=== PATIENT | male | born 2000 | race Caucasian/White ===

== ENCOUNTER 2019-12-05 03:49 | Emergency (ER) | payer SELFPAY ==
--- NOTE | 2019-12-05 03:52 | ECG_ITS ---
Measurements Intervals [place] Rate: 59 P: 62 NE: 127 QRS: 81 QRSD: 101 T: 41 QT: 386 QTc: [address] ELEVATION, PROBABLY EARLY REPOLARIZATION [ST ELEVATION WITH NORMALLY IN INFLECTED T WAVE] No previous ECG available for comparison Electronically Signed On 12-05-2019 13:05:13 CDT by Gera Yun M.D. [email or web address]
[2019-12-05 03:53] VITALS: BP 121/79; PULSE 67; RESP 18; TEMP 36.6; O2SAT 98; BMI 22.8
--- NOTE | 2019-12-05 03:53 | W.ED.OVERDOS ---
HPI - Overdose General: Chief Complaint: Overdose Stated Complaint: accidental overdose Time Seen by Provider: 12/05/19 03:52 Source: patient and EMS Mode of arrival: EMS Limitations: no limitations History of Present Illness: HPI Narrative: 19-year-old male who states he took an allergy pill at 1 AM and then another 1 at 3 AM. The allergy pill was an ekxz-adb-mioyhhp sertraline 10 mg. Patient states that on his way to work he started to feel some palpitations and shaky. He states he feels slightly sick to the stomach. He denies any other symptoms at this time. He is well-appearing here. complaint: accidental overdose Review of Systems Const: Denies: fever(s), chills, body aches or change in appetite Eyes: Denies: blurry vision or eye discomfort ENMT: Denies: throat pain or dental pain Card: Reports: palpitations; Denies: chest pain Resp: Denies: dyspnea GI: Denies: abdominal pain, nausea, vomiting or diarrhea : Denies: dysuria Musc: Denies: neck pain or back pain Skin/Breast: Denies: rash Neuro: Denies: headache(s) Psych: Denies: depression Farhad/Lymph: Denies: easy bruising All/Imm: Denies: urticaria PFSH ED PFSH: Social History Smoking and tobacco status: never smoked Physical Exam Const: COMMON NORMALS: no acute distress, patient oriented x3 and healthy appearing HENMT: COMMON NORMALS: normocephalic and atraumatic HEAD & SCALP: normocephalic and atraumatic Eye: COMMON NORMALS: Equal, round and reactive pupils present and EOMs intact bilaterally PUPIL: Yes Equal, round and reactive pupils present Neck/C-Spine: COMMON NORMALS: full ROM and supple Chest: COMMONS NORMALS: normal inspection of the chest and normal palpation of entire chest wall Resp: COMMON NORMALS: normal respiratory effort, No retractions, No use of accessory muscles and clear to auscultation bilaterally AUSCULTATION: clear to auscultation bilaterally Cardio: COMMON NORMALS: regular rate, regular rhythm and No murmurs present (Cardio) RATE: regular rate RHYTHM: regular rhythm GI: COMMON NORMALS: Normal to inspection, nondistended, normoactive bowel sounds present, Soft to palpation, non-tender and no masses PALPATION: Yes Soft to palpation Extremity: COMMON NORMALS: normal to inspection and full ROM Neuro: COMMON NORMALS: patient oriented x3, moves all extremities and no focal motor deficits Psych: COMMON NORMALS: mental status grossly normal, Normal thought process present and cooperative THOUGHT PROCESS: Normal thought process present Skin: COMMON NORMALS: no rashes or lesions noted and no wounds GENERAL SKIN EXAM: no rashes or lesions noted Course Vital Signs: Vital signs: Vital Signs Temperature 97.9 F 12/05/19 03:53 Pulse Rate 78 12/05/19 04:21 Respiratory Rate 18 12/05/19 04:21 Blood Pressure 140/72 12/05/19 04:21 Pulse Oximetry 98 12/05/19 04:21 MDM - Overdose MDM Narrative: Medical decision making narrative: Patient presents here with med ingestion with no overdose. Patient's been well-appearing here with a normal heart rate. Patient did not have a toxic dose and is stable for discharge. He is to follow-up with primary care doctor in 3 to 5 days return if worsening. EKG Data^: EKG 1: Attestation: I personally reviewed and interpreted this EKG as follows: EKG interpretation date: 12/05/19 EKG interpretation time: 04:13 Interpretation: sinus bradycardia hr [address] or t wave abnormalities qrs 101 qtc 384 Discharge Plan Discharge Patient Disposition: Home, Self-Care Clinical Impression: Drug overdose Qualifiers: Encounter type: initial encounter Injury intent: accidental or unintentional Qualified Code(s): T50.901A - Poisoning by unspecified drugs, medicaments and biological substances, accidental (unintentional), initial encounter Condition: Stable Discharge Orders: Discharge Order (Routine); Ordered 12/05/19 Ordered By: Hilda Pineda Referrals: Larisa العلي DO [Family Provider] - 4-7 days Discharge Diet: Advance as tolerated Discharge Activity: Resume usual activity Patient Instructions: Palpitations (ED) Stand Alone Forms: Work/School Release Discharge Date/Time: 12/05/19 04:23 Coding Level of Care Code ED Hop Trainer for Jm Fwhenri Exam Comprehensive
[2019-12-05] MEDS: LORazepam 1 mg Tablet PO (04:01)
[2019-12-05 04:21] VITALS: BP 113/79; PULSE 66; RESP 18; O2SAT 99
== END 2019-12-05 04:35 | disposition home or self-care (01) ==
PROVIDERS: Emergency Provider Emergency Medicine; Family Provider Family Medicine
DX: T65.91XA Toxic effect of unspecified substance, accidental (unintentional), initial encounter (principal)
CPT/HCPCS: 12345; 93005; 99281; 99283